=== PATIENT | male | born 1995 | race African-American/Black ===

== ENCOUNTER 2024-04-16 23:58 | Inpatient (IN) | payer SELFPAY ==
[2024-04-17 01:22] VITALS: BMI 32.4
[2024-04-17] MEDS ORDERED: Electrolyte Replacement Protocol 1 EACH IVPB PRN (01:38)
[2024-04-17] MEDS ORDERED: Dextrose 5 %-0.45 % NaCl 1,000 ML IV PRN (01:38)
[2024-04-17] MEDS ORDERED: Dextrose 50% Abboject 50 ML SYRINGE SLOW IVP PRN (01:38)
[2024-04-17] MEDS ORDERED: Sodium Chloride 0.9% 1,000 ML IV PRN ×4 (01:38)
[2024-04-17] MEDS ORDERED: NS 0.9% w/ 20 MEQ KCL 1,000 ML IV PRN (01:38)
[2024-04-17 02:30] LABS: Hemoglobin A1c 8.8 % (4.0-6.0)
[2024-04-17 02:48] LABS: Anion Gap 17 mmol/L (10-20); BUN (Urea Nitrogen) 14 mg/dL (8.9-20.6); Calc. Creatinine Clearance 142 mL/min (70-130); Calcium 8.6 mg/dL (7.8-10.44); Carbon Dioxide 12 mmol/L (22-29); Cardiac Risk 5.8 (Less than 4.5); Chloride 112 mmol/L (98-107); Cholesterol 139 mg/dl (< 200 Desired); Estimated GFR 101; Glucose 287 mg/dL (70-105); HDL Cholesterol 24 mg/dL (>60 Neg Risk); Magnesium 2.1 mg/dL (1.6-2.6); Phosphorus 2.2 mg/dL (2.3-4.7); Potassium 4.3 mmol/L (3.5-5.1); Sodium 137 mmol/L (136-145); Triglycerides 414 mg/dL (Less than 150)
[2024-04-17] MEDS: NS 0.9% w/ 20 MEQ KCL 1,000 ML IV PRN (02:56)
[2024-04-17] MEDS: INSULIN REGULAR IN 0.9 % NACL 100 ML IVPB SCH (03:01)
[2024-04-17 06:14] LABS: Anion Gap 12 mmol/L (10-20); BUN (Urea Nitrogen) 13 mg/dL (8.9-20.6); Calc. Creatinine Clearance 159 mL/min (70-130); Calcium 8.5 mg/dL (7.8-10.44); Carbon Dioxide 17 mmol/L (22-29); Chloride 112 mmol/L (98-107); Estimated GFR 116; Glucose 200 mg/dL (70-105); Potassium 4.3 mmol/L (3.5-5.1); Sodium 137 mmol/L (136-145)
[2024-04-17] MEDS: Doxycycline 100 MG in Sodium Chloride 0.9% 100 ML IVPB SCH (08:50)
[2024-04-17] MEDS: D5 1/2 NS w/20 mEq KCL 1,000 ML IV PRN (08:51)
[2024-04-17 10:12] VITALS: BMI 32.4
[2024-04-17 11:13] LABS: Anion Gap 16 mmol/L (10-20); BUN (Urea Nitrogen) 11 mg/dL (8.9-20.6); Calc. Creatinine Clearance 154 mL/min (70-130); Calcium 8.4 mg/dL (7.8-10.44); Carbon Dioxide 13 mmol/L (22-29); Chloride 111 mmol/L (98-107); Estimated GFR 112; Glucose 342 mg/dL (70-105); Sodium 135 mmol/L (136-145)
[2024-04-17] MEDS ORDERED: Glucagon 1 MG/ML KIT IM PRN (12:04)
[2024-04-17] MEDS ORDERED: Dextrose 5% in Water 1,000 ML IV PRN (12:04)
[2024-04-17] MEDS: Sodium Bicarbonate Tab 325 MG TAB PO SCH (13:59)
[2024-04-17] MEDS: Insulin Glargine 30 UNITS/0.3 ML VIAL SC SCH ×2 (14:00→21:40)
[2024-04-17] MEDS: Lactated Ringer's 1,000 ML IV SCH (14:01)
[2024-04-17 16:03] LABS: Anion Gap 15 mmol/L (10-20); BUN (Urea Nitrogen) 9 mg/dL (8.9-20.6); Calc. Creatinine Clearance 164 mL/min (70-130); Carbon Dioxide 16 mmol/L (22-29); Chloride 105 mmol/L (98-107); Estimated GFR 120; Glucose 569 mg/dL (70-105); Potassium 4.6 mmol/L (3.5-5.1); Sodium 131 mmol/L (136-145)
[2024-04-17] MEDS: Insulin Lispro 100 UNIT/ML 10 ML VIAL SC PRN ×2 (19:26→21:40)
[2024-04-17] MEDS: Sodium Chloride 0.9% 1,000 ML IV SCH (19:29)
[2024-04-17 20:21] LABS: Anion Gap 18 mmol/L (10-20); BUN (Urea Nitrogen) 9 mg/dL (8.9-20.6); Calc. Creatinine Clearance 109 mL/min (70-130); Calcium 8.8 mg/dL (7.8-10.44); Carbon Dioxide 16 mmol/L (22-29); Chloride 102 mmol/L (98-107); Estimated GFR 74; Glucose 564 mg/dL (70-105); Potassium 4.8 mmol/L (3.5-5.1); Sodium 131 mmol/L (136-145)
[2024-04-17] MEDS ORDERED: Insulin Glargine 30 UNITS/0.3 ML VIAL SC SCH (21:00)
[2024-04-18 05:27] LABS: ALT (SGPT) 30 U/L (8-55); AST (SGOT) 28 U/L (5-34); Albumin 3.4 g/dL (3.5-5.0); Alkaline Phosphatase 86 U/L (40-110); Anion Gap 15 mmol/L (10-20); BUN (Urea Nitrogen) 7 mg/dL (8.9-20.6); Bilirubin, Total 0.6 mg/dL (0.2-1.2); Calc. Creatinine Clearance 161 mL/min (70-130); Calcium 8.4 mg/dL (7.8-10.44); Carbon Dioxide 19 mmol/L (22-29); Chloride 105 mmol/L (98-107); Estimated GFR 118; Globulin 3.3 g/dL (2.4-3.5); Glucose 265 mg/dL (70-105); Magnesium 1.6 mg/dL (1.6-2.6); Potassium 3.7 mmol/L (3.5-5.1); Protein, Total 6.7 g/dL (6.0-8.3); Sodium 135 mmol/L (136-145)
[2024-04-18 05:36] LABS: #Basophils 0.04 10x3/uL (0.0-0.2); %Basophils 0.5 % (0.0-1.0); %Eosinophils 1.5 % (0.0-10.0); %Lymphocytes 41.5 % (21.0-51.0); %Monocytes 13.4 % (0.0-10.0); %Neutrophils 42.8 % (42.0-75.0); Hematocrit 39.3 % (42.0-52.0); Hemoglobin 12.9 g/dL (14.0-18.0); Mean Corpuscular HGB CONC 32.8 g/dL (32.0-36.0); Mean Corpuscular Hemoglobin 23.9 pg (27.0-31.0); Mean Corpuscular Volume 72.9 fL (78.0-98.0); Platelet Count 265 10x3/uL (130-400); RBC Distribution Width 14.2 % (11.5-14.5); Red Blood Cell (RBC) Count 5.39 mill/uL (4.70-6.10)
[2024-04-18] MEDS: Magnesium 2 GM/50 ML(in water) 2 GM in Premix 1 BAG IVPB SCH (08:43)
[2024-04-18] MEDS: Insulin Glargine 30 UNITS/0.3 ML VIAL SC SCH (11:10)
[2024-04-18] MEDS: Potassium Bicarbonate/Cit Ac 20 MEQ TAB PO SCH (11:14)
[2024-04-18] MEDS: Sodium Chloride 0.9% 1,000 ML IV SCH (13:45)
[2024-04-18] MEDS: Doxycycline 100 MG VIAL ONE (22:18)
[2024-04-18] MEDS: Sodium Chloride 0.9% 500 ML IV SCH (22:30)
[2024-04-19 06:32] LABS: #Basophils 0.03 10x3/uL (0.0-0.2); %Basophils 0.4 % (0.0-1.0); %Eosinophils 1.7 % (0.0-10.0); %Lymphocytes 40.1 % (21.0-51.0); %Monocytes 13.4 % (0.0-10.0); Hematocrit 37.7 % (42.0-52.0); Hemoglobin 12.3 g/dL (14.0-18.0); Mean Corpuscular HGB CONC 32.6 g/dL (32.0-36.0); Mean Corpuscular Hemoglobin 23.7 pg (27.0-31.0); Mean Corpuscular Volume 72.5 fL (78.0-98.0); Mean Platelet Volume 9.6 fL (7.4-10.4); Platelet Count 237 10x3/uL (130-400); RBC Distribution Width 13.9 % (11.5-14.5)
[2024-04-19 06:40] LABS: Anion Gap 13 mmol/L (10-20); BUN (Urea Nitrogen) 6 mg/dL (8.9-20.6); Calc. Creatinine Clearance 178 mL/min (70-130); Calcium 8.3 mg/dL (7.8-10.44); Carbon Dioxide 23 mmol/L (22-29); Chloride 103 mmol/L (98-107); Estimated GFR 123; Glucose 217 mg/dL (70-105); Magnesium 1.9 mg/dL (1.6-2.6); Potassium 3.4 mmol/L (3.5-5.1); Sodium 136 mmol/L (136-145)
[2024-04-19] MEDS: Potassium Chloride 20 MEQ TAB PO SCH ×2 (09:36→09:53)
[2024-04-19] MEDS: Magnesium 2 GM/50 ML(in water) 2 GM in Premix 1 BAG IVPB SCH ×2 (09:40→09:53)
[2024-04-19] MEDS: Insulin Glargine 30 UNITS/0.3 ML VIAL SC SCH (17:49)
[2024-04-19] MEDS: Insulin Lispro 100 UNIT/ML 10 ML VIAL SC SCH (22:36)
[2024-04-20] MEDS: Sodium Chloride 0.9% 500 ML IV SCH (00:20)
[2024-04-20] MEDS: Insulin Glargine 30 UNITS/0.3 ML VIAL SC SCH (08:50)
[2024-04-20 14:30] VITALS: BP 134/86; TEMP 98.6
== END 2024-04-20 14:35 | disposition home or self-care (01) | DRG 638 ==
LOC: IMCU/EMU 04-17 00:52 → T4-A 04-18 12:35
PROVIDERS: ADMIT Internal Medicine; ATTEND Internal Medicine
DX: E11.10 Type 2 diabetes mellitus with ketoacidosis without coma (principal); N17.9 Acute kidney failure, unspecified; D84.1 Defects in the complement system; Z91.018 Allergy to other foods
CPT/HCPCS: 36415; 36416; 80048; 80053; 80061; 83036; 83735; 84100; 84145; 85025; J1815; J3475; J3480; J7030; J7120